=== PATIENT | male | born 1940 | race Hispanic/Latino ===

== ENCOUNTER 2018-09-15 10:02 | Emergency (ER) | payer MEDICARE ==
--- NOTE | 2018-09-15 10:07 | ED PDOC ---
Arrival/HPI - General Historian: Patient - History of Present Illness Narrative History of Present Illness (Text): 09/15/18 10:06 78 y/o male, pmh including htn, nkda, c/o rt. nostril bleeding s/p blowing the nose this morning with no fall or trauma. Bleeding nose, no bleeding now, no dizzines, no headache, no night sweat, no rash, no change in vision, no diarrhea, no other medical or psychological complaints. Past Medical History - Provider Review Nursing Documentation Reviewed: Yes - Cardiac Hx Pacemaker: No - Neurological Hx Paralysis: No - Hematological/Oncological Hx Blood Transfusions: No - Musculoskeletal/Rheumatological Hx Musculoskeletal Disorders: No - Psychiatric Hx Emotional Abuse: No Hx Physical Abuse: No Hx Substance Use: No - Anesthesia Hx Anesthesia Reactions: No Hx Malignant Hyperthermia: No - Suicidal Assessment Feels Threatened In Home Enviroment: No Family/Social History - Physician Review Nursing Documentation Reviewed: Yes Family/Social History: Unknown Family HX Hx Alcohol Use: Yes (WINE) Hx Substance Use: No Allergies/Home Meds Allergies/Adverse Reactions: Allergies No Known Allergies Allergy (Verified 09/15/18 10:17) Home Medications: Home Meds Medication Instructions Recorded Confirmed Atenolol/Chlorthalidone 1 tab PO QOTHERDAY 03/07/15 09/15/18 [Atenolol/Chlorthalidone 50 mg-25 mg] Valsartan/Hydrochlorothiazide 1 tab PO DAILY 09/15/18 09/15/18 [Valsartan-Hctz 320-25 mg Tab] Review of Systems - Review of Systems Constitutional: absent: Fatigue, Fevers Eyes: absent: Vision Changes ENT: Epistaxis. absent: Hearing Changes Respiratory: absent: SOB, Cough Cardiovascular: absent: Chest Pain Gastrointestinal: absent: Abdominal Pain, Diarrhea, Nausea, Vomiting Musculoskeletal: absent: Arthralgias, Back Pain Skin: absent: Rash, Pruritis Neurological: absent: Headache, Dizziness Psychiatric: absent: Anxiety, Depression, Suicidal Ideation Physical Exam Vital Signs Reviewed: Yes Temperature: Afebrile Blood Pressure: Hypertensive Pulse: Regular Respiratory Rate: Normal Appearance: Positive for: Well-Appearing, Non-Toxic, Comfortable Pain Distress: None Mental Status: Positive for: Alert and Oriented X 3 - Systems Exam Head: Present: Atraumatic, Normocephalic Pupils: Present: PERRL Extroacular Muscles: Present: EOMI Conjunctiva: Present: Normal Mouth: Present: Moist Mucous Membranes Nose (External): Present: Atraumatic. No: Abrasion, Contusion, Laceration, Lesions, Other Nose (Internal): Present: Normal Inspection, No Active Bleeding, Epistaxis (Rt. anterior nasal septum region noted single epistaxis source, no septal hematoma. ). No: Rhinorrhea, Septal Deviation, Septal Hematoma Neck: Present: Normal Range of Motion Respiratory/Chest: Present: Clear to Auscultation, Good Air Exchange. No: Respiratory Distress, Accessory Muscle Use Cardiovascular: Present: Regular Rate and Rhythm, Normal S1, S2. No: Murmurs Abdomen: No: Tenderness, Distention, Peritoneal Signs Back: Present: Normal Inspection Upper Extremity: Present: Normal Inspection. No: Cyanosis, Edema Lower Extremity: Present: Normal Inspection. No: Edema Neurological: Present: GCS=15, CN II-XII Intact, Speech Normal Skin: Present: Warm, Dry, Normal Color. No: Rashes Psychiatric: Present: Alert, Oriented x 3, Normal Insight, Normal Concentration Medical Decision Making ED Course and Treatment: 09/15/18 10:39 -Nasal pressure -Observe and reassess 09/15/18 11:32 -Nasal pressure applied, 4% lidocaine prepared on the rt. anterior septum region, cauterization on the rt. anterior and bleeding resolved. -pt. stood up and bleeding from the rt. posterior nostril region noted with no visible anterior bleeding, rapid rhino 7.5cm applied by me and ballon inflated to the recommended cc of ml of air, bleeding resolved, augmentin and percocet ordered for the pain. 09/15/18 11:40 -bleeding resolved, feeling comfortable, advised to see ENT today. -Discharge home with augmentin, tylenol#3 for pain, follow up with your own pmd and ENT within 24-48 hours for rapid rhino removal, return to the ER for any new or worsening signs or symptoms or any problems. - PA / CELERY WRAPPER / Resident Statement MD/DO has reviewed & agrees with the documentation as recorded. Disposition/Present on Arrival - Present on Arrival Any Indicators Present on Arrival: No History of DVT/PE: No History of Uncontrolled Diabetes: No Urinary Catheter: No History of Decub. Ulcer: No - Disposition Have Diagnosis and Disposition been Completed?: Yes Diagnosis: Epistaxis Disposition: HOME/ ROUTINE Disposition Time: 10:39 Patient Plan: Discharge Condition: IMPROVED Additional Instructions: -Discharge home with augmentin, tylenol#3 for pain, follow up with your own pmd and ENT within 24-48 hours for rapid rhino removal, return to the ER for any new or worsening signs or symptoms or any problems. Prescriptions: Acetaminophen/Codeine NO 2 [Tylenol/Cod 300 MG-15 MG] 0.5 tab PO TID PRN #7 tab PRN Reason: Other Amoxicillin/Clavulanate [Augmentin 875 MG-125 MG] 1 tab PO BID #20 tab Referrals: Melquiades Nielsen MD [Primary Care Provider] - Follow up with primary Carroll Davis DO [Staff Provider] - Follow up with primary Forms: [employer] ([place])
[2018-09-15 10:18] VITALS: BMI 25.1
[2018-09-15] MEDS ORDERED: Lidocaine 4% 50 mL Topical Sol (OR USE) NAS STA (10:36)
[2018-09-15] MEDS ORDERED: Amoxicillin-Clav 875-125 mg Tab PO STA (11:30)
[2018-09-15 11:43] VITALS: BP 161/72; PULSE 89; RESP 18; TEMP 97.6; O2SAT 98
== END 2018-09-15 11:44 | disposition home or self-care (01) ==
LOC: ED 10:02
DX: R04.0 Epistaxis (principal)